=== PATIENT | male | born 1995 | race Caucasian/White ===

== ENCOUNTER 2016-05-06 09:17 | Emergency (ER) | payer OTHER ==
[~2016-05-06] VITALS: Ht 180.3 cm; Wt 99.7 kg
[2016-05-06 10:44] LABS: INFLUENZA VIRUS TYPE A ANTIBOD Negative (NEGATIVE); INFLUENZA VIRUS TYPE B ANTIBOD Positive (NEGATIVE)
[2016-05-06 10:56] VITALS: BP 138/92
== END 2016-05-06 10:55 | disposition home or self-care (01) ==
LOC: ED 09:20
DX: J11.1 Influenza due to unidentified influenza virus with other respiratory manifestations (principal)
CPT/HCPCS: 87070; 87502; 87651; 99282; 99283